=== PATIENT | female | born 2000 | race Caucasian/White ===

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

== ENCOUNTER 2019-05-21 16:19 | Emergency (ER) | payer MEDICAID ==
[2019-05-21 17:09] VITALS: BP 103/54
== END 2019-05-21 19:10 | disposition left against medical advice (07) ==
LOC: ER 16:19
DX: Z53.21 Procedure and treatment not carried out due to patient leaving prior to being seen by health care provider (principal)

== ENCOUNTER 2020-05-02 21:10 | Emergency (ER) | payer MEDICAID ==
--- NOTE | 2020-05-02 21:46 | ER Document Report ---
ED Medical Screen (RME) - General Chief Complaint: Chest Pain Stated Complaint: CHEST PAIN,ABDOMINAL PAIN- Time Seen by Provider: 05/02/20 21:38 Mode of Arrival: Ambulatory Information source: Patient Notes: HPI; 20-year-old female presents to the emergency room complaining of chest pain and dizziness for the past 2 weeks. States is of midsternal "fluttering" feeling. History of [id number]. Not currently on medications. Patient states she also did a home test 2 days ago that was positive. Started with abdominal cramping yesterday. Denies any fevers, some nausea but no vomiting. Denies any vaginal bleeding or discharge. She is a 2 para 0. Last menstrual cycle the middle of January. PE: Alert and oriented x3. Lungs: Clear to auscultation without rales, rhonchi, wheezes. Heart regular rate rhythm without murmurs, rubs, gallops. I have greeted and performed a rapid initial assessment of this patient. A comprehensive ED assessment and evaluation of the patient, analysis of test results and completion of the medical decision making process will be conducted by additional ED providers. I have specifically instructed the patient or family members with the patient to immediately return to any nursing staff should anything change in the patient's condition or with their chief complaint. TRAVEL OUTSIDE OF THE [place] IN LAST 30 DAYS: No - Related Data Allergies/Adverse Reactions: No Known Allergies Allergy (Verified 09/19/18 16:37) Past Medical History Renal/ Medical History: Denies: Hx Peritoneal Dialysis Past Surgical History: Reports: Hx Adenoidectomy, Hx Cardiac Surgery - ablation, Hx Tonsillectomy - and adenoids - Immunizations Immunizations up to date: Yes Hx Diphtheria, Pertussis, Tetanus Vaccination: No Physical Exam - Vital signs Vitals: Temp Pulse Resp BP Pulse Ox 99.0 F 83 16 113/66 100 05/02/20 21:35 05/02/20 21:35 05/02/20 21:35 05/02/20 21:35 05/02/20 21:35 Course - Vital Signs Vital signs: Temp Pulse Resp BP Pulse Ox 99.0 F 83 16 113/66 100 05/02/20 21:35 05/02/20 21:35 05/02/20 21:35 05/02/20 21:35 05/02/20 21:35
--- NOTE | 2020-05-02 22:50 | RADIOLOGY REPORT (SQ) ---
EXAM DESCRIPTION: US TRANSVAGINAL COMPLETED DATE/TME: 05/02/2020 22:24 CLINICAL HISTORY: 20 years, Female, cramping. Positive home test. COMPARISON: None. TECHNIQUE: Endovaginal images of the pelvis were obtained. Grayscale imaging, color Doppler flow, and spectral Doppler analysis were performed. LIMITATIONS: None. FINDINGS: No intrauterine gestation is identified. The uterus measures approximately 6.3 x 2.7 x 3.7 cm. Endometrial stripe is 2 mm in thickness. Ovaries measure approximately 2.9 x 2.9 x 2.8 cm on the right and 3.2 x 2.1 x 3 cm on the left. There are multiple small cysts within each ovary, several of which are at the periphery of the ovaries, suspicious for polycystic ovarian syndrome. There is no suspicious adnexal mass. There is no free pelvic fluid. There is no evidence of ovarian torsion on Doppler. IMPRESSION: 1. No intrauterine gestation. No adnexal mass. 2. Multiple bilateral ovarian cysts, several of which are at the periphery of the ovary, suspicious for polycystic ovarian syndrome. copyright 2010 [employer] [facility] [employer]- All Rights Reserved
--- NOTE | 2020-05-02 23:05 | RADIOLOGY REPORT (SQ) ---
AP Portable chest: 05/02/2020 10:03 PM RADIO COMMUNICATION COORDINATOR History: 20-year old patient with chest pain. Comparison: Chest radiograph performed 05/12/2018. Findings: The cardiomediastinal silhouette is normal in size. No pneumothorax is seen. There bilateral interstitial airspace opacities present. No discrete pleural effusion is apparent. Impression: Are bilateral interstitial airspace opacities which may reflect developing infection.
--- NOTE | 2020-05-02 23:58 | EKG REPORT ---
SEVERITY:- ABNORMAL ECG - SINUS RHYTHM SHORT VT INTERVAL, ACCELERATED AV CONDUCTION NONSPECIFIC INTRAVENTRICULAR CONDUCTION DELAY : Confirmed by: Sb Mchugh 02-May-2020 23:58:19
[2020-05-03 00:04] LABS: ABSOLUTE EOSINOPHILS # (AUTO) 0.1 10^3/uL (0.0-0.6); ABSOLUTE LYMPHOCYTES (AUTO) 3.4 10^3/uL (0.5-4.7); ABSOLUTE MONOCYTES (AUTO) 0.6 10^3/uL (0.1-1.4); BASOPHILS % (AUTO) 0.5 % (0-2); EOSINOPHILS % (AUTO) 1.9 % (0-6); HEMATOCRIT 37.5 % (36.0-47.0); HEMOGLOBIN 12.6 g/dL (12.0-15.5); LYMPHOCYTES % (AUTO) 55.4 % (13-45); MEAN CORPUSCULAR HEMOGLOBIN 31.6 pg (27.0-33.4); MEAN CORPUSCULAR HGB CONC 33.6 g/dL (32.0-36.0); MEAN CORPUSCULAR VOLUME 94 fl (80-97); PLATELET COUNT 239 10^3/uL (150-450); RED BLOOD COUNT 3.99 10^6/uL (3.72-5.28); RED CELL DISTRIBUTION WIDTH 12.3 % (11.5-14.0); SEGMENTED NEUTROPHILS % (AUTO) 32.2 % (42-78); TOTAL CELLS COUNTED % (AUTO) 100 %; WHITE BLOOD COUNT 6.1 10^3/uL (4.0-10.5)
[2020-05-03 00:19] LABS: ALBUMIN 4.2 g/dL (3.5-5.0); ALKALINE PHOSPHATASE 82 U/L (38-126); ANION GAP 7 (5-19); ASPARTATE AMINO TRANSFERASE 53 U/L (14-36); BILIRUBIN,DIRECT 0.1 mg/dL (0.0-0.4); BILIRUBIN,TOTAL 0.5 mg/dL (0.2-1.3); BLOOD UREA NITROGEN 6 mg/dL (7-20); CALCIUM 9.1 mg/dL (8.4-10.2); CARBON DIOXIDE 29 mmol/L (22-30); CHLORIDE 104 mmol/L (98-107); GLUCOSE 95 mg/dL (75-110); POTASSIUM 4.4 mmol/L (3.6-5.0); TOTAL PROTEIN 7.7 g/dL (6.3-8.2)
--- NOTE | 2020-05-03 02:33 | ER Document Report ---
ED General - General Chief Complaint: Chest Pain Stated Complaint: CHEST PAIN,ABDOMINAL PAIN- Time Seen by Provider: 05/02/20 21:38 Primary Care Provider: LOLITA HANEY MD [ACTIVE STAFF] - 05/03/20 (Call to arrange follow-up appointment) TATYANA MARTINEZ MD [ACTIVE PROVISIONAL STAFF] - 05/03/20 (Call to arrange follow-up appointment) Mode of Arrival: Ambulatory TRAVEL OUTSIDE OF THE [place] 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 Patient denies chest pain, dyspnea, fever, productive cough, history of Covid 19 infection, known exposure to persons positive for COVID-19 or persons under investigation for COVID-19. Patient states that she will drinks a lot of caffeine. Patient states she also has irregular periods and her last menstrual cycle was January 2012. Patient states she had a positive home test 2 days ago. Patient is G2, P2. Patient denies any vaginal bleeding or discharge. Patient states palpitations are exacerbated with activity. Patient states rest alleviates her symptoms. Patient denies syncope. Associated symptoms: Other - See HPI Exacerbated by: Other - See HPI Relieved by: Other - See HPI - Related Data Allergies/Adverse Reactions: No Known Allergies Allergy (Verified 09/19/18 16:37) Past Medical History - General Information source: Patient - Social History Smoking Status: Unknown if Ever Smoked Family History: CAD, Hypertension, Malignancy Patient has homicidal ideation: No - Past Medical History Cardiac Medical History: Reports: Other - History of WPW status post ablation Renal/ Medical History: Denies: Hx Peritoneal Dialysis Past Surgical History: Reports: Hx Adenoidectomy, Hx Cardiac Surgery - ablation, Hx Tonsillectomy - and adenoids - Immunizations Immunizations up to date: Yes Hx Diphtheria, Pertussis, Tetanus Vaccination: No Review of Systems - Review of Systems Constitutional: See HPI. denies: Chills, Diaphoresis, Fever EENT: No symptoms reported Cardiovascular: Palpitations. denies: Chest pain Respiratory: denies: Cough, Short of breath Gastrointestinal: Nausea Genitourinary: denies: Burning, Dysuria Female Genitourinary: Irregular period, Other - Positive home test, pelvic cramping Musculoskeletal: No symptoms reported Skin: No symptoms reported Hematologic/Lymphatic: No symptoms reported Neurological/Psychological: No symptoms reported -: Yes All other systems reviewed and negative Physical Exam - Vital signs Vitals: Temp Pulse Resp BP Pulse Ox 99.0 F 83 16 113/66 100 05/02/20 21:35 05/02/20 21:35 05/02/20 21:35 05/02/20 21:35 05/02/20 21:35 - Notes Notes: CONSTITUTIONAL [Vital signs reviewed, Patient appears comfortable, Alert and oriented X 3, Normal stature.] HEAD [Atraumatic, Normocephalic.] EYES [Eyes are normal to inspection, No discharge from eyes, Extraocular muscles intact, Sclera are normal, Conjunctiva are normal.] ENT [External ears normal to inspection, Nose examination normal, Mouth normal to inspection.] NECK [Normal ROM, No jugular venous distention, No meningeal signs, ] RESPIRATORY CHEST [Chest is nontender, Breath sounds normal, No respiratory distress.] CARDIOVASCULAR [RRR, No murmurs, Normal S1 S2, No rub, No gallop.] ABDOMEN [Abdomen is nontender, No pulsatile masses, No other masses, Bowel sounds normal, No distension, No peritoneal signs, No hernias.] BACK [There is no CVA Tenderness, There is no tenderness to palpation, Normal inspection.] UPPER EXTREMITY [Inspection normal, No cyanosis, No clubbing, No edema, LOWER EXTREMITY [Inspection normal, No cyanosis, No clubbing, No edema, No calf tenderness, NEURO [No focal motor deficits, No focal sensory deficits, Speech normal.] SKIN [Skin is warm, Skin is dry, Skin is normal color.] PSYCHIATRIC [Normal affect. ] Course - Re-evaluation Re-evalutation: 05/03/20 02:42 Results of ED MSE discussed with patient. All questions were answered. Emergency signs and symptoms, reasons to return to the emergency department discussed with patient. - Vital Signs Vital signs: Temp Pulse Resp BP Pulse Ox 99.0 F 83 16 113/66 100 05/02/20 21:35 05/02/20 21:35 05/02/20 21:35 05/02/20 21:35 05/02/20 21:35 - Laboratory Result Diagrams: 05/02/20 23:36 05/02/20 23:36 Laboratory results interpreted by me: 05/02/20 05/02/20 23:36 23:36 Lymph % (Auto) 55.4 H Seg Neutrophils % 32.2 L BUN 6 L AST 53 H ALT 45 H - Diagnostic Test Radiology reviewed: Reports reviewed - EKG Interpretation by Me Additional EKG results interpreted by me: 05/03/20 02:43 EKG obtained on 05/02/2020 at 2117 hrs. was interpreted by this MD. Findings sinus rhythm, rate 74, ME interval is short, P waves preceding QRS complexes, QRS complex shows what appears to be a right bundle branch block, normal axis, QTC is 431, there are no obvious patterns of ST segment elevation, depression or reciprocal changes seen to suggest acute myocardial ischemia or infarction. Impression sinus rhythm with right bundle branch block and nonspecific ST segments and shortened ME interval. When compared to prior EKG from 05/12/2018 morphology is grossly the same, with what appears to be a right bundle branch block and a short ME interval. - Consults Dr. Lolita Haney Time consulted: 02:25 - Dr. Haney said he would be happy to see the patient in his office. 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 Fay office today, 05/03/2020 to arrange a follow-up appointment for your heart palpitations. Call Dr. Martinez's office today, 05/03/2020 to arrange a follow-up appointment to be seen for a blood level. You were blood level today was less than 2.39. Return to the Emergency Department without delay if any worse. HOME CARE INSTRUCTIONS & INFORMATION: Thank you for choosing us for your medical needs. We hope you're satisfied with the care you received. After you leave, you must properly care for your problem and, at the same time, observe its progress. Any condition can change. Some illnesses can change rapidly over hours or days. If your condition worsens, return to the Emergency Department or see your physician promptly. ABOUT YOUR X-RAYS AND EKG'S: If you had an EKG or X-rays taken, they have been read by the Emergency Physician. The X-rays and EKG's will also be read by a Radiologist or University Administrator within 24 hours. If discrepancies are noted, you will be notified by telephone. Please be certain the ED has a correct telephone number & address where you can be reached. Also, realize that some fractures or abnormalities do not show up on initial X-rays. If your symptoms continue, see your physician. ABOUT YOUR LABORATORY TEST: If you had laboratory tests, the results have been reviewed by the Emergency Physician. Some test results (for example cultures) may not be available for several days. You will be contacted if any test result shows you need additional treatment. Please be certain the ED has a correct [employer] number and address where you can be reached. ABOUT YOUR MEDICATIONS: You will receive instructions on how to take your medicine on the prescription label you receive. Additional information may be provided by the Pharmacy. If you have questions afterwards, call the ED for clarification or further instructions. Some prescribed medications may cause drowsiness. Do not perform tasks such as driving a car or operating machinery without consulting your Pharmacist. If you feel you need a refill of pain medication, your condition will need re-evaluation. Please do not call for a refill of any medication. ABOUT YOUR SIGNATURE: Signature of this document acknowledges to followin. Understanding that you received emergency treatment and that you may be released before al medical problems are known or treated. Please be certain the ED has a correct phone number & address where you can be reached. 2. Acknowledgement that you will arrange for follow-up care as recommended. 3. Authorization for the Emergency Physician to provide information to your follow-up Physician in order to maximize your care. AT ANY TIME, IF YOUR SYMPTOMS CHANGE SIGNIFICANTLY OR WORSEN OR YOU DEVELOP NEW SYMPTOMS, RETURN TO THE EMERGENCY DEPARTMENT IMMEDIATELY FOR RE-EVALUATION. OUR GOAL IS TO PROVIDE EXCELLENT MEDICAL CARE! WE HOPE THAT WE HAVE MET YOUR EXPECTATIONS DURING YOUR EMERGENCY DEPARTMENT VISIT AND THAT YOU FEEL YOU HAVE RECEIVED EXCELLENT CARE! Palpitations (Irregular/Rapid Heartrate) Irregular or rapid heartbeat is called "palpitation." To diagnose the cause of palpitation, we have to "catch it in the act" with an EKG. Sinus Tachycardia: This is a rapid (but NORMAL) rhythm that can be due to fever, pain, anxiety, lack of sleep, over-exertion, or drugs. Cold medications, caffeine, and diet pills are particularly likely to cause tachycardia. Usually, all that's required is rest, reassurance, and avoiding caffeine, alcohol, nicotine, and unnecessary medicines. Paroxysmal Atrial Tachycardia (PAT): This abnormally rapid heartbeat is caused by a "short circuit" in the electrical system of the heart. It is not dangerous, unless other heart disease is present. These attacks of PAT may occur occasionally for years. Medication is available for treatment. Paroxysmal Atrial Fibrillation or Atrial Flutter: This is irregular electrical activity in the upper heart chamber. These abnormal rhythms often occur with valve disease or in hearts damaged by hardening of the arteries. These rhythms usually require further testing, for example a cardiac echo. Premature Beats: Extra beats occur more commonly after caffeine, nicotine, alcohol, cold pills, diet pills. Emotional stress or fatigue also provoke them. Extra beats are only dangerous when heart disease is present. They usually need no treatment. If they're frequent, or if evidence of heart disease deve lops, medication can be given to suppress them. If we were unable to "catch" the palpitations on EKG, you should try to get an EKG immediately if the symptoms begin again. Contact the physician at once if you develop persistent lightheadedness, shortness of breath, chest pain, or swelling of the ankles. Referrals: LOLITA HANEY MD [ACTIVE STAFF] - 05/03/20 (Call to arrange follow-up appointment) TATYANA MARTINEZ MD [ACTIVE PROVISIONAL STAFF] - 05/03/20 (Call to arrange follow-up appointment)
[2020-05-03 03:10] VITALS: BP 109/64
== END 2020-05-03 03:09 | disposition home or self-care (01) ==
LOC: ER 21:10
DX: R00.2 Palpitations (principal); E28.2 Polycystic ovarian syndrome; R10.2 Pelvic and perineal pain; R11.0 Nausea; N92.6 Irregular menstruation, unspecified; Z98.890 Other specified postprocedural states; Z86.79 Personal history of other diseases of the circulatory system
CPT/HCPCS: 36415; 71045; 76817; 80053; 84484; 84702; 85025; 93005; 93010; 93976; 99285